=== PATIENT | female | born 1955 | race Hispanic/Latino ===

== ENCOUNTER 2017-12-20 20:20 | Inpatient (IN) | payer MEDICARE ==
[~2017-12-20] VITALS: Ht 152.4 cm; Wt 65.5 kg
[2017-12-20 20:57] LABS: APPEARANCE,URINE Cloudy (CLEAR); BILIRUBIN,URINE Negative (NEGATIVE); COLOR,URINE Yellow (YELLOW); GLUCOSE, URINE (UA) 250 mg/dL (NEGATIVE); KETONES,URINE 40 mg/dL (NEGATIVE); LEUKOCYTE ESTERASE ,URINE Small (NEGATIVE); NITRATE,URINE Negative (NEGATIVE); OCCULT BLOOD,URINE Negative (NEGATIVE); PROTEIN,URINE POS 1+ (NEGATIVE)
[2017-12-20] MEDS ORDERED: ONDANSETRON ODT 4 MG TAB ONE (20:59)
[2017-12-20 21:00] LABS: BASOPHILS % (AUTO) 0.3 % (0.0-5.0); EOSINOPHILS % (AUTO) 1.1 % (0.0-8.0); MEAN CORPUSCULAR HEMOGLOBIN 35.1 pg (27.0-33.0); MEAN CORPUSCULAR HGB CONC 35.2 g/dL (32.0-36.0); MEAN CORPUSCULAR VOLUME 99.6 fL (79-99); MONOCYTES % (AUTO) 8.7 % (3.0-13.0); NEUTROPHILS % (AUTO) 76.9 % (40.0-77.0); PLATELET COUNT (AUTO) 180 K/uL (130-400); RED BLOOD CELL COUNT(AUTO) 3.92 MIL/uL (4.00-5.50); RED CELL DISTRIBUTION WIDTH 12.8 % (11.0-15.5); WHITE BLOOD COUNT (AUTO) 5.3 K/uL (4.8-10.8)
[2017-12-20 21:04] LABS: BACTERIA,URINE Rare /HPF (None Seen); MUCUS,URINE Moderate LPF (None Seen); RBC,URINE None Seen /HPF (0-1)
[2017-12-20 21:13] LABS: RAPID GROUP A STREP NEGATIVE (NEGATIVE)
[2017-12-20] MEDS ORDERED: LIDOCAINE HCL-MPF 1% 2ML VIAL ONE (21:14)
[2017-12-20 21:15] LABS: CREATININE 0.9 mg/dL (0.5-1.5)
[2017-12-20] MEDS ORDERED: CEFTRIAXONE SODIUM 1 GM ONE (21:15)
[2017-12-20 21:19] LABS: ALBUMIN 4.1 g/dL (3.5-5.0); BILIRUBIN,TOTAL 0.4 mg/dL (0.2-1.0); TOTAL PROTEIN, SERUM 8.1 g/dL (6.0-8.3)
[2017-12-20 21:21] LABS: B-TYPE NATRIURETIC PEPTIDE 131 pg/mL (0-100)
[2017-12-20] MEDS ORDERED: GADOBENATE DIMEGLUMINE 20 ML IV ONE (22:21)
[2017-12-20 23:40] VITALS: BP 149/70
[2017-12-21] MEDS ORDERED: MILK500C PO (00:29)
[2017-12-21] MEDS ORDERED: METF10004 PO (00:29)
[2017-12-21] MEDS ORDERED: IBUP-2353 PO (00:29)
[2017-12-21] MEDS ORDERED: CHOL500050 PO (00:29)
[2017-12-21] MEDS ORDERED: LOVA40TA2 PO (00:29)
[2017-12-21] MEDS ORDERED: LOSA50TA37 PO (00:29)
[2017-12-21] MEDS ORDERED: METO10PO MC (00:29)
[2017-12-21] MEDS ORDERED: MECO10002 SL (00:29)
[2017-12-21] MEDS ORDERED: ALEN70SO3 PO (00:29)
[2017-12-21] MEDS ORDERED: SITA100T12 PO (00:29)
[2017-12-21] MEDS ORDERED: MECL12.585 PO (00:29)
[2017-12-21] MEDS ORDERED: HYDRALAZINE HCL 20 MG/ML VIAL IV PRN (00:45)
[2017-12-21] MEDS ORDERED: GLUCAGON 1MG KIT 1 MG ML IM PRN (00:45)
[2017-12-21] MEDS ORDERED: DEXTROSE 50%-WATER 50 ML DISP.SYRIN IV PRN (00:45)
[2017-12-21 03:28] VITALS: BP 126/75
[2017-12-21] MEDS: PNEUMOCOCCAL VACCINE POLYVALENT 0.5 ML/VIAL [PPV] IM SCH (06:30)
[2017-12-21] MEDS: INSULIN R PO SS1 SQ SCH ×4 (06:35→22:03)
[2017-12-21 07:24] VITALS: BP 142/74
[2017-12-21] MEDS: PANTOPRAZOLE SODIUM 40 MG TABLET.DR PO SCH (08:37)
[2017-12-21] MEDS: DEXAMETHASONE 4 MG TAB PO SCH ×3 (08:37→22:14)
[2017-12-21] MEDS: FAMOTIDINE/PF 20 MG/2 ML VIAL IV SCH ×2 (08:37→19:48)
[2017-12-21] MEDS ORDERED: METOCLOPRAMIDE 10 MG TABLET PO PRN (09:30)
[2017-12-21] MEDS ORDERED: IOPAMIDOL-370 75 ML VIAL IV ONE (10:35)
[2017-12-21] MEDS: LEVETIRACETAM 500 MG TABLET PO SCH ×2 (11:14→19:48)
[2017-12-21 11:40] VITALS: BP 137/84
[2017-12-21 16:03] VITALS: BP 132/73
[2017-12-21] MEDS: ATORVASTATIN CALCIUM 20 MG TABLET PO SCH (19:48)
[2017-12-21 20:15] VITALS: BP 114/75
[2017-12-21 23:54] VITALS: BP 109/69
[2017-12-22] MEDS: DEXAMETHASONE 4 MG TAB PO SCH ×4 (04:37→19:57)
[2017-12-22 04:39] VITALS: BP 98/63
[2017-12-22] MEDS: PNEUMOCOCCAL VACCINE POLYVALENT 0.5 ML/VIAL [PPV] IM SCH (06:30)
[2017-12-22 06:35] VITALS: BP 98/63
[2017-12-22] MEDS: INSULIN R PO SS1 SQ SCH ×4 (06:46→21:05)
[2017-12-22 07:38] VITALS: BP 107/79
[2017-12-22] MEDS: PANTOPRAZOLE SODIUM 40 MG TABLET.DR PO SCH (08:35)
[2017-12-22] MEDS: FAMOTIDINE/PF 20 MG/2 ML VIAL IV SCH ×2 (08:36→19:56)
[2017-12-22] MEDS: LOSARTAN 50 MG TABLET PO SCH (08:36)
[2017-12-22] MEDS: LEVETIRACETAM 500 MG TABLET PO SCH ×2 (08:36→19:57)
[2017-12-22 11:43] VITALS: BP 119/68
[2017-12-22 16:04] VITALS: BP 122/69
[2017-12-22] MEDS: ATORVASTATIN CALCIUM 20 MG TABLET PO SCH (19:57)
[2017-12-22 20:09] VITALS: BP 120/66
[2017-12-23] VITALS: BP 107/67
[2017-12-23] MEDS: DEXAMETHASONE 4 MG TAB PO SCH ×4 (01:44→20:18)
[2017-12-23 03:23] VITALS: BP 107/67
[2017-12-23] MEDS: INSULIN R PO SS1 SQ SCH ×4 (05:54→20:45)
[2017-12-23 07:10] VITALS: BP 128/75
[2017-12-23] MEDS: LEVETIRACETAM 500 MG TABLET PO SCH ×2 (08:37→20:18)
[2017-12-23] MEDS: LOSARTAN 50 MG TABLET PO SCH (08:37)
[2017-12-23] MEDS: FAMOTIDINE/PF 20 MG/2 ML VIAL IV SCH ×2 (08:37→20:17)
[2017-12-23] MEDS: PANTOPRAZOLE SODIUM 40 MG TABLET.DR PO SCH (09:00)
[2017-12-23 11:04] VITALS: BP 136/75
[2017-12-23 16:40] VITALS: BP 148/67
[2017-12-23] MEDS: PNEUMOCOCCAL VACCINE POLYVALENT 0.5 ML/VIAL [PPV] IM SCH (17:48)
[2017-12-23 20:00] VITALS: BP 124/83
[2017-12-23] MEDS: ATORVASTATIN CALCIUM 20 MG TABLET PO SCH (20:18)
[2017-12-24 00:22] VITALS: BP 124/78
[2017-12-24] MEDS: DEXAMETHASONE 4 MG TAB PO SCH ×3 (02:15→17:20)
[2017-12-24 03:56] VITALS: BP 126/80
[2017-12-24] MEDS: INSULIN R PO SS1 SQ SCH ×3 (05:53→17:21)
[2017-12-24] MEDS: PNEUMOCOCCAL VACCINE POLYVALENT 0.5 ML/VIAL [PPV] IM SCH (06:06)
[2017-12-24 07:00] VITALS: BP 131/76
[2017-12-24] MEDS: PANTOPRAZOLE SODIUM 40 MG TABLET.DR PO SCH (08:48)
[2017-12-24] MEDS: FAMOTIDINE/PF 20 MG/2 ML VIAL IV SCH (08:49)
[2017-12-24] MEDS: LEVETIRACETAM 500 MG TABLET PO SCH (08:49)
[2017-12-24] MEDS: LOSARTAN 50 MG TABLET PO SCH (08:49)
[2017-12-24 11:30] VITALS: BP 128/77
[2017-12-24 16:00] VITALS: BP 139/70
== END 2017-12-24 18:33 | disposition home or self-care (01) | DRG 54 ==
LOC: EDH 20:20 → EDHIP 21:48 → OBSVTOIN 21:48 → 2AH 23:02
PROVIDERS: ADMIT Internal Medicine; ATTEND Internal Medicine
PROC: 3E0234Z Introduction of Serum, Toxoid and Vaccine into Muscle, Percutaneous Approach (ICD-10-PCS; principal; 2017-12-20)
DX: C79.31 Secondary malignant neoplasm of brain (principal); G93.6 Cerebral edema; E11.9 Type 2 diabetes mellitus without complications; E78.5 Hyperlipidemia, unspecified; I10 Essential (primary) hypertension; Z85.51 Personal history of malignant neoplasm of bladder; Z87.891 Personal history of nicotine dependence; Z92.21 Personal history of antineoplastic chemotherapy; Z92.3 Personal history of irradiation; Z90.710 Acquired absence of both cervix and uterus; Z23 Encounter for immunization
CPT/HCPCS: 36415; 70450; 70496; 70553; 71045; 80053; 81001; 82948; 83605; 83880; 84484; 85025; 87804; 87880; 90732; 93005; 99291; A9577; J0696; J1815; J3490; J8540; Q9967

== ENCOUNTER 2017-12-31 20:49 | Emergency (ER) | payer MEDICARE ==
[~2017-12-31 20:49] MED LIST: ALEN70SO3 PO; CHOL500050 PO; IBUP-2353 PO; LOSA50TA37 PO; LOVA40TA2 PO; MECL12.585 PO; MECO10002 SL; METF10004 PO; METO10PO MC; MILK500C PO; SITA100T12 PO
[2017-12-31] MEDS ORDERED: ONDANSETRON HCL MDV 20ML 2 MG/ML VIAL ONE (21:14)
[2017-12-31] MEDS ORDERED: HYDROMORPHONE 1 MG/1 ML AMP ONE (21:14)
[2017-12-31] MEDS ORDERED: SODIUM CHLORIDE 0.9% 500ML 500 ML IV ONE (21:14)
[2017-12-31 21:31] LABS: BASOPHILS % (AUTO) 0.3 % (0.0-5.0); EOSINOPHILS % (AUTO) 0.6 % (0.0-8.0); HEMATOCRIT 38.2 % (36-48); MEAN CORPUSCULAR HEMOGLOBIN 34.3 pg (27.0-33.0); MEAN CORPUSCULAR HGB CONC 34.8 g/dL (32.0-36.0); MEAN CORPUSCULAR VOLUME 98.6 fL (79-99); MONOCYTES % (AUTO) 6.5 % (3.0-13.0); NEUTROPHILS % (AUTO) 81.6 % (40.0-77.0); PLATELET COUNT (AUTO) 177 K/uL (130-400); RED BLOOD CELL COUNT(AUTO) 3.87 MIL/uL (4.00-5.50); RED CELL DISTRIBUTION WIDTH 13.3 % (11.0-15.5); WHITE BLOOD COUNT (AUTO) 7.4 K/uL (4.8-10.8)
[2017-12-31 21:37] LABS: CREATININE 0.8 mg/dL (0.5-1.5); POTASSIUM 3.8 mmol/L (3.5-5.1)
[2017-12-31 21:42] LABS: ALBUMIN 3.6 g/dL (3.5-5.0); BILIRUBIN,TOTAL 0.4 mg/dL (0.2-1.0)
== END 2017-12-31 23:01 | disposition home or self-care (01) ==
LOC: EDH 20:49
DX: R11.2 Nausea with vomiting, unspecified (principal); R51 Headache; E11.9 Type 2 diabetes mellitus without complications; E78.5 Hyperlipidemia, unspecified; I10 Essential (primary) hypertension; Z85.841 Personal history of malignant neoplasm of brain; Z90.710 Acquired absence of both cervix and uterus
CPT/HCPCS: 36415; 70450; 80053; 85025; 96361; 96374; 96375; 99285; J1170; J7040